=== PATIENT | female | born 1980 | race Hispanic/Latino ===

== ENCOUNTER 2016-07-18 07:00 | Inpatient (IN) | payer OTHER ==
[2016-07-18] VITALS (34 sets, daily range): BP systolic 85–123; BP diastolic 51–81
[~2016-07-18] VITALS: Ht 157.5 cm; Wt 63.6 kg
[2016-07-18] MEDS ORDERED: D5 LR IV SOLUTION 1,000 ML IV SCH (07:40)
[2016-07-18] MEDS ORDERED: OXYTOCIN/NORMAL SALINE 500 ML IV SCH ×2 (07:40→07:41)
[2016-07-18] MEDS ORDERED: TETANUS,DIPTH,PERTUSS P/F (BOOSTRIX) 0.5 ML VIAL IM ONE (07:45)
[2016-07-18] MEDS ORDERED: oxyCODONE/APAP 10/325MG (PERCOCET 10) TABLET PO PRN (07:45)
[2016-07-18] MEDS ORDERED: MEASLES,MUMPS,RUBELLA 1 EA INJ SC ONE (07:45)
[2016-07-18] MEDS ORDERED: BENZOCAINE/MENTHOL (DERMOPLAST) 56 ML CAN TP PRN (07:45)
[2016-07-18] MEDS ORDERED: KETOROLAC 30 MG/ML VIAL IV SCH (07:45)
[2016-07-18] MEDS ORDERED: LACTATED RINGERS 1,000 ML IV ONE ×2 (07:50→08:55)
[2016-07-18 07:58] LABS: BASOPHILS % (AUTO) 0 % (0-10); EOSINOPHILS # (AUTO) 0.1 10^3/uL (0.0-0.3); EOSINOPHILS % (AUTO) 1 % (0-10); LYMPHOCYTES # (AUTO) 1.6 X 10^3 (1.0-4.0); LYMPHOCYTES % (AUTO) 22 % (12-44); MEAN CORPUSCULAR HEMOGLOBIN 28 PG (25-34); MEAN CORPUSCULAR HGB CONC 32 G/DL (32-36); MEAN CORPUSCULAR VOLUME 88 FL (80-99); MEAN PLATELET VOLUME 11.1 FL (7.4-10.4); MONOCYTES # (AUTO) 1.1 X 10^3 (0.0-1.0); MONOCYTES % (AUTO) 15 % (0-12); NEUTROPHILS # (AUTO) 4.7 X 10^3 (1.8-7.8); NEUTROPHILS % (AUTO) 63 % (42-75); PLATELET COUNT 167 10^3/uL (130-400); RED BLOOD COUNT 4.21 10^6/uL (4.35-5.85); RED CELL DISTRIBUTION WIDTH 13.2 % (10.0-14.5); WHITE BLOOD COUNT 7.4 10^3/uL (4.3-11.0)
[2016-07-18] MEDS ORDERED: SUFENTA 0.6MCG/ML BUPIVA 0.125 100 ML ONE (08:19)
[2016-07-18] MEDS ORDERED: BUPIVACAINE 0.25% 30 ML (SENSORCAINE) VIAL ONE (08:20)
[2016-07-18] MEDS ORDERED: PREN1TAB86 PO (08:50)
[2016-07-18] MEDS ORDERED: BUPIVACAINE 0.25% 30 ML (SENSORCAINE) VIAL INJ ONE (09:00)
[2016-07-18] MEDS ORDERED: EPIDURAL (SUFENTA 0.6MCG/ML BUPIVA 0.125%) 100 ML BAG EPI SCH (09:00)
[2016-07-18] MEDS ORDERED: NALOXONE 0.4 MG/ML 1 ML (NARCAN) VIAL IV PRN (09:00)
[2016-07-18] MEDS ORDERED: ONDANSETRON 4 MG/2 ML (SDV) Z0FRAN IV PRN (09:00)
[2016-07-18] MEDS: DOCUSATE SODIUM 100 MG (COLACE) CAP PO SCH ×2 (11:10→21:30)
[2016-07-18] MEDS ORDERED: LIDOCAINE/EPI 1%-1:200,000 (XYLOCAINE) 30 ML VIAL ONE (11:43)
[2016-07-18] MEDS: KETOROLAC 30 MG/ML VIAL IV SCH (16:15)
[2016-07-19 01:00] VITALS: BP 115/77
[2016-07-19] MEDS: KETOROLAC 30 MG/ML VIAL IV SCH (01:02)
[2016-07-19 05:00] VITALS: BP 94/71
--- NOTE | 2016-07-19 07:36 | Progress Note-Standard ---
Standard Progress Note Progress Notes/Assess & Plan Progress/Assessment & Plan this patient complains of left calf pain. She indicates that this started earlier this morning. She denies nausea vomiting, headache, or shortness of breath. Patient is ambulating, voiding, tolerating by mouth well, and has good pain control. Vital Signs Date Time Temp Pulse Resp B/P (MAP) Pulse Ox O2 Delivery O2 Flow Rate FiO2 07/19/16 05:00 97.7 58 18 94/71 98 Room Air 07/19/16 01:00 97.9 64 18 115/77 97 Room Air 07/18/16 19:55 96.9 72 18 118/81 100 Room Air 07/18/16 16:15 97.3 72 18 123/78 99 Room Air 07/18/16 14:36 98.2 71 18 98/60 Room Air 07/18/16 14:22 65 18 95/60 Room Air 07/18/16 14:07 81 18 104/69 Room Air 07/18/16 13:52 75 18 120/77 Room Air 07/18/16 13:39 97.3 63 18 114/75 Room Air 07/18/16 13:06 70 18 114/72 Room Air 07/18/16 12:52 62 18 113/69 Room Air 07/18/16 12:37 68 18 111/72 Room Air 07/18/16 12:23 82 18 114/62 Room Air 07/18/16 12:21 97.8 07/18/16 12:07 97.4 76 18 120/70 Room Air 07/18/16 12:05 86 18 117/69 Room Air 07/18/16 12:03 97.8 07/18/16 12:00 84 18 100 Room Air 07/18/16 11:45 68 18 104/80 100 Room Air 07/18/16 11:30 97.6 62 18 104/70 100 Room Air 07/18/16 11:15 70 18 101/71 100 Room Air 07/18/16 11:00 61 18 99/69 99 Room Air 07/18/16 10:45 98.0 76 18 102/51 100 Room Air 07/18/16 10:30 68 18 100/68 100 Room Air 07/18/16 10:15 73 18 100/68 100 Room Air 07/18/16 10:00 69 18 103/70 99 Room Air 07/18/16 09:45 71 18 102/70 98 Room Air 07/18/16 09:30 71 18 107/70 97 Room Air 07/18/16 09:15 97.1 84 18 98/61 100 Room Air 07/18/16 09:00 48 18 85/57 95 Room Air 07/18/16 08:45 100 18 95/59 99 Room Air 07/18/16 08:41 77 18 99/65 100 Room Air 07/18/16 08:38 80 18 104/66 100 Room Air 07/18/16 08:38 80 18 104/66 100 Room Air 07/18/16 08:34 73 18 94/71 100 Room Air 07/18/16 08:33 74 18 105/73 100 Room Air 07/18/16 08:31 72 18 109/75 100 Room Air 07/18/16 08:30 67 18 116/77 100 Room Air 07/18/16 08:28 67 18 116/77 100 Room Air 07/18/16 08:00 97.7 I & O 07/19/16 07:00 Intake Total 2400 ml Balance 2400 ml Vital signs are stable. Patient is afebrile. Fundus is firm below the umbilicus and nontender. Extremities show clubbing or cyanosis. There is a left Homans sign. There is minimal pretibial pitting edema. Assessment and plan day number 1 status post term spontaneous vaginal delivery. Patient does have left calf Pain with a Homans sign. We will obtain a Doppler study to evaluate for DVT AVA MATTSON MD Jul 19, 2016 7:36 am
[2016-07-19] MEDS ORDERED: OXYC-465 PO (07:44)
[2016-07-19] MEDS ORDERED: IBUP-1780 PO (07:44)
[2016-07-19] MEDS ORDERED: DOCU100C37 PO (07:44)
[2016-07-19] MEDS ORDERED: IBUPROFEN 800 MG (MOTRIN) TAB PO SCH (07:45)
--- NOTE | 2016-07-19 07:45 | Discharge Instructions ---
Discharge Instructions Discharge Medications New, Converted or Re-Newed RX: RX on Chart Patient Instructions Patient Instructions: as directed Return to The Hospital For: as directed Activity & Diet Discharge Diet: No Restrictions Activity as Tolerated: No Orders-Post D/C & Referrals Follow Up Appt: Call to make follow up appt. for patient in 4 to 6 weeks. Activity Per routine post vaginal delivery instructions. Diet as tolerated Patient may shower or tub bathe as desired. AVA MATTSON MD Jul 19, 2016 7:45 am
[2016-07-19 09:10] VITALS: BP 107/73
--- NOTE | 2016-07-19 09:30 | PROCEDURE REPORT ---
PROCEDURE PHYSICIAN: AVA MATTSON DELIVERY NOTE DATE OF PROCEDURE: 07/18/2016 DATE OF DICTATION: 07/18/2016 The patient delivered by term spontaneous vaginal delivery of a viable male with Apgars of 8 and 9 at 1 to 5 minutes respectfully. Weight was 8 pounds 2 ounces. time was 1204. The infant was bulb suctioned on delivery of the head. A single nuchal cord was easily released and the delivery completed. The was delivered over a midline episiotomy performed at the patient's request when her bottom had stretched as far as was possible and she was unable to deliver the presenting part over the perineum. The episiotomy was cut the delivery ensued promptly. The was bulb suctioned again on completion of delivery. The umbilical cord when pulseless was doubly clamped, father cut the cord. The baby was passed to mom's abdomen. Cord bloods were obtained including a cord blood gas secondary to repetitive decels occurring during the labor. The placenta delivered spontaneously Roberts. It was normal with a three-vessel cord and it was sent to pathology for permanent section secondary to the decels and to this patient's late care. The cervix, vagina, perineum and rectum were examined and found intact except for the midline episiotomy, which was repaired in the usual manner with a single suture of 3-0 Vicryl Rapide. Sponge and needle counts were correct on completion of delivery and the repair. Estimated blood loss was around 200 mL. The patient tolerated the delivery and repair well and remained in the LDR for recovery. The baby remained with the mom. Job ID: [id number] Dictated Date: 07/18/2016 12:21:37 Leach Cell Operator Date: 07/19/2016 09:24:50 / skinny
--- NOTE | 2016-07-19 09:42 | Diagnostic Imaging Report ---
EXAMINATION: Left lower extremity duplex venous ultrasound. TECHNIQUE: DVT protocol. Multiple sonographic images with color Doppler and waveform interrogation were performed of the left lower extremity veins with compression and augmentation maneuvers. INDICATION: Left leg positive Homans sign. FINDINGS: The left lower extremity veins from the groin to below the knee veins were examined with normal color-flow, compressibility and waveform demonstrated. The great saphenous vein is patent. IMPRESSION: No evidence of DVT in the left lower extremity. Dictated by: Dictated on workstation # [id number]
[2016-07-19] MEDS: DOCUSATE SODIUM 100 MG (COLACE) CAP PO SCH (09:51)
[2016-07-19 12:30] VITALS: BP 114/74
--- NOTE | 2016-07-19 12:30 | Anesthesia-Regional Post-Op ---
Regional Patient Condition Mental Status: Alert, Oriented x3 Circulation: Same as Pre-Op Headache: Absent Sensation: Full Recovery Motor Block: Absent Post Op Complications Complications None Follow Up Care/Instructions Patient Instructions None needed. Anesthesia/Patient Condition Patient is doing well, no complaints, stable vital signs, no apparent adverse anesthesia problems. No complications reported per nursing. ASHLEY KEITA CRNA Jul 19, 2016 12:30
--- NOTE | 2016-07-25 07:59 | History & Physical ---
History and Physical this patient is a 35-year-old email admitted for elective induction of labor 39 weeks gestation. Her was uncomplicated. Her GBS culture was negative. She presented with complaint of rupture membranes or bleeding. She was having occasional contraction. Allergies are none Medications are vitamins S medical history, past surgical history, obstetric history, family history, social histories are per the antepartum record HEENT exam is normal Neck is supple no lymphadenopathy no thyromegaly Abdomen is gravid soft nontender nondistended Extremities show clubbing cyanosis. There is no Homans sign. Pelvic exam is per the medical records. Assessment and plan 39 week uncomplicated admitted for elective induction of labor. 39 week elective induction of labor Allergies and Home Medications Allergies Coded Allergies: No Known Drug Allergies (Unverified , 07/18/16) Home Medications Docusate Sodium 100 Mg Capsule, 100 MG PO BID, #60 Prescribed by: AVA MARQUIS on 07/19/16 0744 Ibuprofen 800 Mg Tablet, 800 MG PO Q6H, #60 Prescribed by: AVA MARQUIS on 07/19/16 0744 Oxycodone HCl/Acetaminophen 1 Each Tablet, 1-2 TAB PO Q4H PRN for PAIN, #60 Prescribed by: AVA MARQUIS on 07/19/16 0744 Vit W-Ca,Fe,FA(<1 mg) 1 Each Tablet, 1 EACH PO DAILY, (Reported) Clinical Quality Measures DVT/VTE Risk/Contraindication: Risk Factor Score Per Nursin RFS Level Per Nursing on Admit: 1=Low/No VTE PPX AVA MATTSON MD Jul 25, 2016 07:59
== END 2016-07-19 16:50 | disposition home or self-care (01) | DRG 775 ==
LOC: LDRP 07:13
PROVIDERS: ADMIT Obstetrics & Gynecology; ATTEND Obstetrics & Gynecology
PROC: 10E0XZZ Delivery of Products of Conception, External Approach (ICD-10-PCS; principal; 2016-07-18)
PROC: 0W8NXZZ Division of Female Perineum, External Approach (ICD-10-PCS; 2016-07-18)
DX: O26.893 Other specified pregnancy related conditions, third trimester (principal); O09.523 Supervision of elderly multigravida, third trimester; O69.81X0 Labor and delivery complicated by cord around neck, without compression, not applicable or unspecified; O99.89 Other specified diseases and conditions complicating pregnancy, childbirth and the puerperium; M79.662 Pain in left lower leg; Z3A.39 39 weeks gestation of pregnancy; Z37.0 Single live birth
CPT/HCPCS: 36415; 85025; 86850; 86900; 86901